=== PATIENT | female | born 1945 | race Asian ===

== ENCOUNTER 2018-03-20 18:01 | Emergency (ER) | payer OTHER, MEDICAID ==
[~2018-03-20] VITALS: Ht 157.5 cm; Wt 61.2 kg
[2018-03-20 18:06] VITALS: BP_SYST 119
[2018-03-20 19:20] LABS: BASOPHILS # (AUTO) 0.1 K/uL (0.0-0.2); BASOPHILS % (AUTO) 0.7 % (0.0-2.0); EOSINOPHILS # (AUTO) 0.1 K/uL (0.0-0.4); EOSINOPHILS % (AUTO) 0.7 % (0.0-4.0); HEMATOCRIT 41.9 % (36-48); HEMOGLOBIN 14.5 g/dL (12.0-16.0); LYMPHOCYTES # (AUTO) 1.6 K/uL (1.0-5.5); LYMPHOCYTES % (AUTO) 11.6 % (20.5-51.5); MEAN CORPUSCULAR HEMOGLOBIN 32 pg (27-31); MEAN CORPUSCULAR HGB CONC 35 % (32-36); MEAN CORPUSCULAR VOLUME 92 fL (79.0-98.0); MONOCYTES # (AUTO) 0.7 K/uL (0.0-1.0); MONOCYTES % (AUTO) 5.3 % (1.7-9.3); NEUTROPHILS # (AUTO) 11.3 K/uL (1.8-7.7); NEUTROPHILS % (AUTO) 81.7 % (40.0-70.0); PLATELET COUNT (AUTO) 266 K/uL (130-430); RED BLOOD CELL COUNT(AUTO) 4.57 MIL/uL (4.2-6.2); RED CELL DISTRIBUTION WIDTH 12.6 % (9.0-15.0); WHITE BLOOD COUNT (AUTO) 13.8 K/uL (4.8-10.8)
[2018-03-20 19:33] LABS: ANION GAP 7 (5-15); CALCIUM 9.5 mg/dL (8.4-11.0); CHLORIDE 100 mmol/L (98-107); CREATININE 0.96 mg/dL (0.55-1.30); GLUCOSE 155 mg/dL (70-99); SODIUM SERUM 134 mmol/L (136-145); UREA NITROGEN, BLOOD 27 mg/dL (8-21)
[2018-03-20 19:38] LABS: ALANINE AMINOTRANSFERASE 42 U/L (12-78); ALBUMIN 4.1 g/dL (3.4-4.8); ASPARTATE AMINOTRANSFERASE 28 U/L (10-37); TOTAL BILIRUBIN 0.4 mg/dL (0.0-1.0)
[2018-03-20 20:19] LABS: BILIRUBIN,URINE NEGATIVE (NEGATIVE); CLARITY/URINE CLEAR (CLEAR); COLOR,URINE YELLOW (YELLOW); GLUCOSE,URINE NEGATIVE (NEGATIVE); KETONES,URINE NEGATIVE (NEGATIVE); LEUKOCYTE ESTERASE ,URINE 1+ (NEGATIVE); NITRITE, URINE POSITIVE (NEGATIVE); PH,URINE 5.5 (5.0-8.0); PROTEIN URINE NEGATIVE (NEGATIVE)
[2018-03-20 20:24] LABS: BLOOD, URINE TRACE (NEGATIVE)
[2018-03-20 20:31] LABS: BACTERIA,URINE MANY /HPF (None Seen)
[2018-03-20] MEDS ORDERED: MECLIZINE HCL 25 MG TABLET (ANITVERT) PO ONE (21:15)
[2018-03-20] MEDS ORDERED: cefTRIAXone 1 GM IVPB PREMIX 50 ML IV ONE (21:15)
[2018-03-20] MEDS ORDERED: LORazepam 1 MG TABLET PO ONE (21:30)
[2018-03-20 22:09] VITALS: BP_SYST 120
== END 2018-03-20 22:09 | disposition home or self-care (01) ==
LOC: SED 18:01
DX: G89.29 Other chronic pain (principal); M25.561 Pain in right knee; N39.0 Urinary tract infection, site not specified; R42 Dizziness and giddiness; I10 Essential (primary) hypertension
CPT/HCPCS: 36415; 70450; 71045; 80053; 81000; 85025; 85730; 87086; 87186; 93005; 96365; 99285; J0696; J8597

== ENCOUNTER 2019-08-27 11:47 | Inpatient (IN) | payer OTHER, MEDICAID ==
[~2019-08-27] VITALS: Ht 157.5 cm; Wt 58.7 kg
[2019-08-27 11:55] VITALS: BP_SYST 153
--- NOTE | 2019-08-27 12:01 | NUR ---
Patient triaged and placed in waiting room. VSS and patient appears in no acute distress at this time. Accompanied by son, awaiting available bed, and MD notified of need for MSE.
--- NOTE | 2019-08-27 12:20 | NUR ---
Placed in room 03 . Placed on front desk monitor, blood pressure machine and pulse oximeter. To gown for exam. Side rails up.
--- NOTE | 2019-08-27 12:30 | NUR ---
PT CAME TO ER C/O OF PAIN IN R RIB RADIATING TO R LEG. PT IS RESTING COMFORTABLY, NO S/S OF DISTRESS
[2019-08-27] MEDS ORDERED: ONDANSETRON HCL 4 MG/2 ML VIAL IVP ONE (13:00)
[2019-08-27] MEDS ORDERED: NACL 0.9% 1,000 ML IV ONE (13:00)
--- NOTE | 2019-08-27 13:05 | NUR ---
medicated the pt w/ Zoan and NS per MD order.
--- NOTE | 2019-08-27 13:15 | NUR ---
ER at bedside examining patient.
[2019-08-27 13:25] LABS: BASOPHILS # (AUTO) 0.1 K/uL (0.0-0.2); BASOPHILS % (AUTO) 0.4 % (0.0-2.0); EOSINOPHILS # (AUTO) 0.1 K/uL (0.0-0.4); EOSINOPHILS % (AUTO) 0.8 % (0.0-4.0); HEMATOCRIT 35.5 % (36-48); HEMOGLOBIN 11.6 g/dL (12.0-16.0); LYMPHOCYTES # (AUTO) 0.8 K/uL (1.0-5.5); LYMPHOCYTES % (AUTO) 6.7 % (20.5-51.5); MEAN CORPUSCULAR HEMOGLOBIN 30 pg (27-31); MEAN CORPUSCULAR HGB CONC 33 % (32-36); MEAN CORPUSCULAR VOLUME 92 fL (79.0-98.0); MONOCYTES # (AUTO) 0.7 K/uL (0.0-1.0); MONOCYTES % (AUTO) 6.1 % (1.7-9.3); NEUTROPHILS # (AUTO) 10.6 K/uL (1.8-7.7); PLATELET COUNT (AUTO) 225 K/uL (130-430); RED BLOOD CELL COUNT(AUTO) 3.88 MIL/uL (4.2-6.2); WHITE BLOOD COUNT (AUTO) 12.3 K/uL (4.8-10.8)
--- NOTE | 2019-08-27 13:55 | NUR ---
report given and care endorsed to Darlene
[2019-08-27 14:07] LABS: ANION GAP 5 (5-15); CALCIUM 7.5 mg/dL (8.4-11.0); CHLORIDE 104 mmol/L (98-107); CREATININE 0.65 mg/dL (0.55-1.30); GLUCOSE 184 mg/dL (70-99); POTASSIUM 3.4 mmol/L (3.5-5.1); SODIUM SERUM 137 mmol/L (136-145); UREA NITROGEN, BLOOD 13 mg/dL (8-21)
[2019-08-27 14:15] LABS: ALANINE AMINOTRANSFERASE 22 U/L (12-78); ALBUMIN 2.8 g/dL (3.4-4.8); ASPARTATE AMINOTRANSFERASE 24 U/L (10-37); TOTAL BILIRUBIN 0.4 mg/dL (0.0-1.0)
[2019-08-27 14:16] LABS: LIPASE 1084 U/L (73-393)
--- NOTE | 2019-08-27 14:16 | NUR ---
URINE COLLECTED AND SENT TO LAB
[2019-08-27 14:22] LABS: BILIRUBIN,URINE NEGATIVE (NEGATIVE); BLOOD, URINE NEGATIVE (NEGATIVE); CLARITY/URINE CLEAR (CLEAR); COLOR,URINE YELLOW (YELLOW); GLUCOSE,URINE NEGATIVE (NEGATIVE); KETONES,URINE NEGATIVE (NEGATIVE); LEUKOCYTE ESTERASE ,URINE 1+ (NEGATIVE); NITRITE, URINE POSITIVE (NEGATIVE); PH,URINE 6.5 (5.0-8.0); PROTEIN URINE NEGATIVE (NEGATIVE)
[2019-08-27 14:26] LABS: BACTERIA,URINE MANY /HPF (None Seen); RBC,URINE 0-3 /HPF (0-3)
[2019-08-27] MEDS ORDERED: cefTRIAXone 1 GM in D5W 50 ML IV ONE (15:00)
[2019-08-27] MEDS ORDERED: cefTRIAXone 1 GM VIAL ONE (15:10)
[2019-08-27] MEDS ORDERED: IBAN150T8 PO (15:17)
[2019-08-27] MEDS ORDERED: NOR10 PO (15:17)
[2019-08-27] MEDS ORDERED: POTA8TAB4 PO (15:17)
[2019-08-27] MEDS ORDERED: HYDR25TA4 PO (15:17)
[2019-08-27] MEDS ORDERED: ASPI-859 PO (15:17)
[2019-08-27] MEDS ORDERED: PARO-41 PO (15:17)
[2019-08-27] MEDS ORDERED: GABA300S PO (15:17)
[2019-08-27] MEDS ORDERED: OXYB5TAB11 PO (15:17)
[2019-08-27] MEDS ORDERED: SIMV40TA2 PO (15:17)
[2019-08-27] MEDS ORDERED: OMEP-268 PO (15:17)
[2019-08-27] MEDS ORDERED: FURO-149 PO (15:17)
[2019-08-27] MEDS ORDERED: LISI-600 PO (15:17)
[2019-08-27] MEDS ORDERED: ATEN50TA PO (15:17)
[2019-08-27] MEDS ORDERED: NAPR-1069 PO (15:17)
--- NOTE | 2019-08-27 15:58 | NUR ---
Ultrasound at bedside
--- NOTE | 2019-08-27 16:00 | NUR ---
Dr. Moran speaking with Dr. Cage regarding admission.
--- NOTE | 2019-08-27 16:05 | NUR ---
Dr. Moran at bedside updating pt on change of status
--- NOTE | 2019-08-27 16:08 | NUR ---
MST to call back with bed number
--- NOTE | 2019-08-27 16:29 | NUR ---
BP 202/105. Dr. Moran notified. Labetolol 10mg IVP to be ordered.
[2019-08-27] MEDS ORDERED: LABETALOL 100 MG/ 20ML VIAL IVP ONE (16:30)
--- NOTE | 2019-08-27 16:36 | NUR ---
BP 123/71. Dr. Moran notified. Labetolol canceled per .
--- NOTE | 2019-08-27 16:36 | NUR ---
Patient will be admitted to care of Dr. Cage. Admitted to Telemetry unit. Will go to room 111B. Belongings list completed. Complete and up to date summary report printed. SBAR report to be given at bedside with opportunity for questions.
--- NOTE | 2019-08-27 16:39 | NUR ---
Patient will be admitted to [facility]. Admitted to Telemetry unit. Will go to room 111B. Complete and up to date summary report printed. SBAR report to be given at bedside with opportunity for questions.
--- NOTE | 2019-08-27 16:47 | NUR ---
ADMISSION NOTE: Received patient from ER via gurney. Patient admitted with diagnosis of right sided chest pain and acute pancreatitis. Patient is awake, alert, oriented X 2. Patient oriented to hospital room, call light, toileting, pain management and safety-teach back done. Patient informed that their room number is 104A. Personal belongings checked and Belongings List documented. Call light within reach.
[2019-08-27 17:21] VITALS: BP_SYST 171
[2019-08-27 17:32] VITALS: BP_SYST 171
--- NOTE | 2019-08-27 19:35 | NUR ---
ROUNDS PATIENT RESTING COMFORTABLY IN BED, NOT IN DISTRESS, KYRGYZ SPEAKING, FAMILY AT THE BEDSIDE. DENIES ANY PAIN AND DISCOMFORT AT THIS TIME. ASSESSMENT DONE AND DOCUMENTED. SEE FLOWSHEET. NEEDS ATTENDED TO. SAFETY AND FALL MEASURES IN PLACED. BED IN LOW AND LOCKED POSITION. BED ALARM ON. CALL LIGHT PLACED WITHIN REACH.
[2019-08-27 20:00] VITALS: BP_SYST 197
[2019-08-27] MEDS ORDERED: ATENOLOL 50 MG TABLET (TENORMIN) PO ONE (20:00)
[2019-08-27] MEDS ORDERED: cloNIDine HCL 0.2 MG TABLET PO ONE (20:00)
[2019-08-27] MEDS ORDERED: cloNIDine HCL 0.1 MG TABLET PO PRN (20:00)
[2019-08-27] MEDS ORDERED: POTASSIUM CHLORIDE 20 MEQ TAB.PRT.SR PO ONE (20:00)
[2019-08-27] MEDS ORDERED: OXYBUTYNIN CHLORIDE 5 MG TABLET PO ONE (20:00)
[2019-08-27] MEDS ORDERED: LISINOPRIL 20 MG TABLET PO ONE (20:00)
[2019-08-27] MEDS ORDERED: ACETAMINOPHEN 325 MG TABLET PO PRN (20:15)
[2019-08-27] MEDS ORDERED: MORPHINE 2 MG/ML INJ. SYRINGE IVP PRN ×2 (20:15)
[2019-08-27] MEDS ORDERED: CIPROFLOXACIN HCL 500 MG TABLET PO ONE (20:15)
[2019-08-27] MEDS ORDERED: ONDANSETRON HCL 4 MG/2 ML VIAL IVP PRN (20:15)
--- NOTE | 2019-08-27 20:30 | NUR ---
DR. RYAN DAVIS HERE AND SAW PATIENT WITH NEW ORDERS. WILL CONTINUE TO MONITOR.
--- NOTE | 2019-08-27 20:56 | NUR ---
CONSULTATION PAGED/CALLED Reason for Consultation: PANCREATITIS Person Who was Notified: SELINA Consulting Physician: Traffic And Transport Planner Specialty: GI Ordering Physician:
--- NOTE | 2019-08-27 20:57 | NUR ---
CONSULTATION PAGED/CALLED Reason for Consultation: CP Person Who was Notified: SELINA Consulting Physician: Heel Buffer Specialty: CARDIO Ordering Physician:
--- NOTE | 2019-08-27 20:58 | NUR ---
CONSULTATION PAGED/CALLED Reason for Consultation: CP Person Who was Notified: SELINA Consulting Physician: DR.KALKAT LEYVA Insurance Instructor Specialty: PULMO Ordering Physician:
[2019-08-27] MEDS: LACTOBACILLUS RHAMNOSUS GG 1 CAP CAPSULE PO SCH (21:00)
[2019-08-27] MEDS: POTASSIUM CHLORIDE 20 MEQ TAB.PRT.SR PO SCH (21:00)
[2019-08-27] MEDS: FAMOTIDINE PF 20 MG/2 ML VIAL IVP SCH (21:02)
[2019-08-27] MEDS: GABAPENTIN 300 MG CAPSULE PO SCH (21:02)
[2019-08-27] MEDS: ENOXAPARIN SODIUM 40 MG/0.4 ML SYRINGE SUBCUT SCH (21:03)
--- NOTE | 2019-08-27 21:13 | NUR ---
MEDICATION DUE MEDICATIONS GIVEN SCHEDULED, TOLERATED WELL. WILL CONTINUE TO MONITOR.
[2019-08-28] VITALS: BP_SYST 115
--- NOTE | 2019-08-28 00:15 | NUR ---
NOTES PATIENT AWAKE, VITALS STABLE, DENIES ANY PAIN AT THIS TIME. PATIENT DOES NOT WANT TO STAY IN BED AND WANTS TO SIT OUTSIDE HER ROOM. WILL CONTINUE TO MONITOR.
--- NOTE | 2019-08-28 02:15 | NUR ---
PATIENT RESTING: Patient resting quietly. No acute distress noted. Vital signs within normal range.
--- NOTE | 2019-08-28 04:21 | NUR ---
NOTES PATIENT ASLEEP, RESPIRATIONS EVEN AND UNLABORED, WILL CONTINUE TO MONITOR.
--- NOTE | 2019-08-28 06:44 | NUR ---
CLOSING NOTES PATIENT AWAKE, VITALS STABLE, NO PAIN AND DISCOMFORT NOTED AT THIS TIME. ALL NEEDS ATTENDED TO. SAFETY AND FALL MEASURES MAINTAINED. CALL LIGHT PLACED WITHIN REACH.
[2019-08-28 07:30] LABS: BASOPHILS # (AUTO) 0.1 K/uL (0.0-0.2); BASOPHILS % (AUTO) 0.8 % (0.0-2.0); EOSINOPHILS # (AUTO) 0.1 K/uL (0.0-0.4); EOSINOPHILS % (AUTO) 1.4 % (0.0-4.0); HEMATOCRIT 39.4 % (36-48); HEMOGLOBIN 12.9 g/dL (12.0-16.0); LYMPHOCYTES # (AUTO) 0.9 K/uL (1.0-5.5); LYMPHOCYTES % (AUTO) 9.1 % (20.5-51.5); MEAN CORPUSCULAR HEMOGLOBIN 30 pg (27-31); MEAN CORPUSCULAR HGB CONC 33 % (32-36); MEAN CORPUSCULAR VOLUME 92 fL (79.0-98.0); MONOCYTES # (AUTO) 0.6 K/uL (0.0-1.0); MONOCYTES % (AUTO) 5.9 % (1.7-9.3); NEUTROPHILS # (AUTO) 8.5 K/uL (1.8-7.7); NEUTROPHILS % (AUTO) 82.8 % (40.0-70.0); PLATELET COUNT (AUTO) 248 K/uL (130-430); RED CELL DISTRIBUTION WIDTH 14.3 % (9.0-15.0); WHITE BLOOD COUNT (AUTO) 10.2 K/uL (4.8-10.8)
--- NOTE | 2019-08-28 08:00 | NUR ---
RN INITIAL NOTES RECEIVED PATIENT IN BED ALERT [place] SPEAKING SON AT BEDSIDE AND INTERPRETED PATIENT WAS REPORTED CONFUSED AND RESTLESS LAST NIGHT , PER SON SHOLA PATIENT WAS RESTLESS AND CONFUSED LAST NIGHT BEC SHE WANTS TO GO HOME BEC SHE WANTS TO PREPARE FOR THE NEW YEAR AND CELEBRATE THE USUAL ROUTINE CELEBRATION LIKE GIVEING MONEY AWAY TO THE FAMILY AND TO PREPARE FOOD, NO DISTRESS, RESP EVEN AND UNLABORED, PATIENT IV HL TO RT WRIST INTACT , AWAITING FOR THE GI AND CARDIOLOGY TO COME SEE PATIENT , SAFETY ENSURED AND PATIENT SON EXPLAINED FULLY TO THE PATIENT WHICH SHE FULLY UNDERSTOOD.
[2019-08-28 08:27] LABS: ALANINE AMINOTRANSFERASE 22 U/L (12-78); ALBUMIN 3.1 g/dL (3.4-4.8); AMYLASE 50 U/L (0-100); ANION GAP 9 (5-15); ASPARTATE AMINOTRANSFERASE 30 U/L (10-37); CALCIUM 7.7 mg/dL (8.4-11.0); CHLORIDE 105 mmol/L (98-107); CREATININE 0.61 mg/dL (0.55-1.30); FREE T4 (FREE THYROXINE) 1.3 ng/dl (0.8-1.5); GLUCOSE 116 mg/dL (70-99); LIPASE 300 U/L (73-393); PHOSPHORUS 2.5 mg/dL (2.7-4.5); SODIUM SERUM 139 mmol/L (136-145); THYROID STIMULATING HORMONE 4.88 uIu/mL (0.36-3.74); TOTAL BILIRUBIN 0.4 mg/dL (0.0-1.0); UREA NITROGEN, BLOOD 13 mg/dL (8-21)
[2019-08-28] MEDS: LACTOBACILLUS RHAMNOSUS GG 1 CAP CAPSULE PO SCH ×2 (08:55→20:51)
[2019-08-28] MEDS: POTASSIUM CHLORIDE 20 MEQ TAB.PRT.SR PO SCH ×2 (08:55→20:51)
[2019-08-28] MEDS: GABAPENTIN 300 MG CAPSULE PO SCH ×3 (08:56→20:51)
[2019-08-28] MEDS: CIPROFLOXACIN HCL 500 MG TABLET PO SCH ×2 (08:57→21:03)
[2019-08-28] MEDS: FAMOTIDINE PF 20 MG/2 ML VIAL IVP SCH ×2 (08:59→20:51)
[2019-08-28] MEDS ORDERED: NON-FORMULARY MEDICATION (Omeprazole 1 CAP) PO SCH (09:00)
[2019-08-28] MEDS ORDERED: PARoxetine HCL 20 MG TABLET PO SCH (09:00)
[2019-08-28] MEDS ORDERED: amLODIPine BESYLATE 10 MG TABLET PO SCH (09:00)
[2019-08-28] MEDS ORDERED: ATENOLOL 50 MG TABLET (TENORMIN) PO SCH (09:00)
[2019-08-28] MEDS ORDERED: PANTOPRAZOLE SODIUM 40 MG TAB PO SCH (09:00)
[2019-08-28] MEDS ORDERED: LISINOPRIL 20 MG TABLET PO SCH (09:00)
[2019-08-28] MEDS ORDERED: ASPIRIN 81 MG TABLET(ECOTRIN) PO SCH (09:00)
[2019-08-28] MEDS ORDERED: SIMVASTATIN 40 MG TABLET PO SCH (09:00)
[2019-08-28] MEDS ORDERED: OXYBUTYNIN CHLORIDE 5 MG TABLET PO SCH (09:00)
[2019-08-28] MEDS ORDERED: FUROSEMIDE 40 MG TABLET PO SCH (09:00)
[2019-08-28 09:04] LABS: CHOLESTEROL 129 mg/dL (<200); HDL CHOLESTEROL 44 mg/dL (>55); LDL CHOLESTEROL 67 mg/dL (<100); TRIGLYCERIDES 84 mg/dL (30-150)
--- NOTE | 2019-08-28 10:00 | NUR ---
GI /CARDIOLOGY CONSULT /VISIT PATIENT SEEN BY DR SNELL AND INTERPRETED BY SON PLAN OF CARE , AND UNDERSTOOD 2 D ECHO DONE AND SON AT BEDSIDE , DR OVERTON SPOKE WITH THE PATIENT AND SON ORDERED FOR EGD , WILL OBTAIN CONSENT
[2019-08-28] MEDS: cefTRIAXone 1 GM in D5W 50 ML IV SCH (10:20)
[2019-08-28 10:27] VITALS: BP_SYST 127
--- NOTE | 2019-08-28 10:57 | NUR ---
FALL INCIDENT HEARD BED ALARM ,AND SAW PATIENT STANDING AND SLOWLY SLIDING TO THE FLOOR BEFORE STAFF GOT TO HER , STAFF RUN AND ASSISTED PATIENT BACK TO THE BED,ABLE TO TAKE A FEW STEPS , NO SIGN OF INJURY, BED ALARM REACTIVATED AGAIN,PATIENT IS ALERT AWAKE AND NO SIGN OF DISTRESS, PATIENT IS A AZERI SPEAKING DENIES PAIN PER SUPERCHARGER REPAIR SUPERVISOR AND SHE STATED PER SUPERCHARGER REPAIR SUPERVISOR THAT SHE STOOD UP BECAUSE SHE WANTS TO GO HOME VITALS SIGNS TAKEN AND ADVISED PATIENT TO REFRAIN FROM GETTING UP UNATTENDED , WILL INFORM MD AND SON MADE AWARE, SON IS TALKING TO THE PATIENT RIGHT NOW, WILL CONT TO MONITOR PATIENT CLOSELY
--- NOTE | 2019-08-28 11:30 | NUR ---
DR RYAN PINZON CAME MADE AWARE OT THE PATIENT CONDITION ,
[2019-08-28] MEDS ORDERED: HALOPERIDOL LACTATE 5 MG/ML VIAL ONE (11:48)
--- NOTE | 2019-08-28 11:55 | NUR ---
HALDOL HALDOL WAS GIVEN BY BRAULIO RUDD , D/T PATIENT BECOMES VERY RESTLESS AND WANTS TO GO HOME , FEW STAFF CAME AND HELP PATIENT FOR HALDOL INJECTION
[2019-08-28 12:30] VITALS: BP_SYST 137
[2019-08-28] MEDS ORDERED: HALOPERIDOL LACTATE 5 MG/ML VIAL IM ONE (12:30)
--- NOTE | 2019-08-28 12:56 | NUR ---
REFUSAL TO GO TO OTHER ROOM WITH SITTER DISCUSSED WITH CHACORTA JOLLEY INFORMED PATIENT RISK OF ANOTHER FALL INCIDENT , CHACORTA JOLLEY STATED NO NEED TO TRANSFER MY MOM TO A ROOM WITH A SITTER , PER SON HE EXPLAINED TO THE PATIENT ABOUT RISK OF FALL AND ADVISED TO STAY IN BED TILL HE COMES BACK AFTER PICKING UP HIS KIDS FROM SCHOOL, PATIENT PLACED IN THE MIDDLE OF THE BED AND ADVISED TO STAY IN BED , PATIENT AGREED FOR THE IV REINSERTION TO RT. WRIST , PATIENT AT THIS TIME CALMED DOWN BUT STILL VERBALIZING WANTING TO GO HOME, CHACORTA JOLLEY CONSENTED WITH THE EGD
[2019-08-28] MEDS ORDERED: HALOPERIDOL LACTATE 5 MG/ML VIAL IM PRN (13:15)
--- NOTE | 2019-08-28 15:00 | NUR ---
RESTLESS PATIENT BECOMES RESTLESS AGAIN AND SON WAS CALLED AND SON CAME KEEP PATIENT IN THE ROOM AND SAFETY ENSURED PATIENT ASSISTED TO THE BR
--- NOTE | 2019-08-28 15:18 | NUR ---
DCPA and Social Service contact COMPONENT INSPECTOR met with patient at bedside to conduct a DCPA. Pt. was alert and calm, she was admitted to the floor for acute pancreatitis and right side chest pain. Son Yang Magaña was present and provided info for assessment, Pt is Icelandic speaking only. Pt. lives at home with and son is her [facility] medical care evaluation specialist. Pt. has the following insurance [employer], [employer] [place] [employer]. Her PCP is Dr. Jareth Mccain in [place] . Prior to being admitted Pt. was minimal assist with her activities of daily living, utilizes a walker for mobility, able to ambulate and lives in the first floor. Pt. has no Hx of HH, SNF and have no preference as if it were to be recommended. Pt. and Pts family want her to return home to previous care arrangements , son is available to continue to provide care for her at home. No Social Service concern or inquiry at this time. DCP/ CM and SS to remain available as needed.
[2019-08-28 16:29] VITALS: BP_SYST 138
[2019-08-28] MEDS: HALOPERIDOL 1 MG TABLET (HALDOL) PO SCH ×2 (18:43→20:51)
--- NOTE | 2019-08-28 18:55 | NUR ---
ENDORSEMENT WILL ENDORSE TO NEXT SHIFT CONT CARE , PATIENT IS FOE EGD IN AM , WITH CONSENT OBTAINED FROM SON PATIENT STILL WITH EPISODES OF ON AND OFF RESTLESSNESS PT TRANSFERRED TO ROOM 121 FOR SITTER AND SAFETY D/T EPISODES OF GETTING UP PATIENT WILL BE NPO PMN EGD WILL BE @ 8AM HALDOL GIVEN AND SHE TOOK IT
--- NOTE | 2019-08-28 19:30 | NUR ---
CHANGE OF SHIFT; pt. awake, alert, pt. speaks Setswana, pretty calm at this time. able to do some sign language , on direct observation due to restlessness and fell today. SHON Manzanares at bedside.
[2019-08-28] MEDS: ENOXAPARIN SODIUM 40 MG/0.4 ML SYRINGE SUBCUT SCH (20:55)
[2019-08-28 21:00] VITALS: BP_SYST 154
--- NOTE | 2019-08-28 21:00 | NUR ---
NOTES: pt. been sleeping, VS checked,been refusing to take medications. called her son and spoke to her on the phone and agreed to take it. made aware also that she will be NPO after midnight fro schedule EGD and son informed pt. pt. needs attended. remain on direct observation. on fall risk precautions.
--- NOTE | 2019-08-28 22:25 | NUR ---
NOTES: pt. checked and sleeping, no distress noted nor discomfort. continue direct observation.
--- NOTE | 2019-08-28 22:40 | NUR ---
NOTES: Troponin level ordered by Dr. Edna robles, pt. refused blood draw. called exchange, laron PINZON, Dr. Dominguez 1st pressman on web press, waiting to call back.
--- NOTE | 2019-08-28 23:00 | NUR ---
NOTES: pt. got ouf bed and went to the restroom and after she came out of the room, thinking her son is here, try to reorient. called the son again on the phone and let him talk to her to go back to bed, pt. did but only for few minutes and out of bed again/ security tech here, stand by. called criminal records technician to interpret she speaks the same dialect. Dr. Dominguez returned the call and made him aware of pt. refusal of blood draw. 3 series of Troponiin already done and all with normal results.
--- NOTE | 2019-08-28 23:15 | NUR ---
NOTES: pt. remain outside her room , sitting up in chair, emerging technologies director here talking to her in her dialect. pt. disoriented and still saying her son is here. Haldol im given as ordered, closely observed. pt. calm.
--- NOTE | 2019-08-28 23:46 | NUR ---
NOTES: pt. went back to her bed. bed alarm on. on direct observation.
--- NOTE | 2019-08-28 23:49 | NUR ---
NOTES: pt. up again, remain confused. let her sit outside her room in a chair.
[2019-08-29 00:15] VITALS: BP_SYST 139
--- NOTE | 2019-08-29 01:52 | NUR ---
NOTES: pt. checked and sleeping. on continuous direct observation. SHON Batista watching over.the pt. ed alarm turned on.
--- NOTE | 2019-08-29 04:00 | NUR ---
NOTES: pt. remain sleeping. no complaints manifested. dozing at long intervals. kept NPO.on direct observation.
--- NOTE | 2019-08-29 05:26 | NUR ---
NOTES: remain sleeping, no distress. on direct observation. IV lock intact.
--- NOTE | 2019-08-29 05:46 | NUR ---
NOTES: pt. awakened, got out of bed and use the restroom and voided.pt. does not want to go back to bed. ambulated outside and sitting in a chair. pt. calm. closely watch.
--- NOTE | 2019-08-29 06:40 | NUR ---
CLOSING NOTES; pt. remains awake. sitting up in chair with ROPE MAKER watching. no complaints noted. IV lock patent and secured with kerlix gauze dressing. kept NPO for schedule EGD this am, consent signed by son. GI nurse here and updated on pt. status. for further care and assistance and observation. will endorse to day shift.
[2019-08-29] MEDS ORDERED: MIDAZOLAM HCL 5 MG/5 ML VIAL ONE (07:16)
[2019-08-29] MEDS ORDERED: MEPERIDINE HCL/PF 25 MG/ML DISP.SYRIN ONE ×3 (07:16→07:17)
[2019-08-29 07:43] VITALS: BP_SYST 149
--- NOTE | 2019-08-29 08:00 | NUR ---
initial notes pt rec sitting in a chair on the hallway accompanied by her son. resp easy and unlabored. no osb noted. pt is npo will have egd today. will continue to monitor patient.
--- NOTE | 2019-08-29 09:00 | NUR ---
rounds was picked by wheelchair for egd accompanied by son and kena lab nurse.
[2019-08-29] MEDS ORDERED: SIMETHICONE 40 MG/0.6 ML ML ONE (09:36)
[2019-08-29] MEDS ORDERED: MEPERIDINE HCL/PF 25 MG/ML DISP.SYRIN IVP ONE (10:15)
[2019-08-29] MEDS ORDERED: SIMETHICONE 80 MG TAB.CHEW PO ONE (10:30)
[2019-08-29] MEDS ORDERED: MIDAZOLAM HCL/PF 2 MG/2 ML SYRINGE IVP ONE (10:30)
--- NOTE | 2019-08-29 10:30 | NUR ---
rounds pt was back from gi lab. pt is stable but drowsy. arousable to stimuli.
[2019-08-29] MEDS ORDERED: PANTOPRAZOLE SODIUM 40 MG TAB PO ONE (10:45)
[2019-08-29] MEDS: cefTRIAXone 1 GM in D5W 50 ML IV SCH (11:34)
[2019-08-29 12:13] VITALS: BP_SYST 154
[2019-08-29] MEDS ORDERED: CIPR-211 PO (13:59)
[2019-08-29] MEDS ORDERED: LACT1CAP57 PO (13:59)
--- NOTE | 2019-08-29 14:00 | NUR ---
rounds seen by dr marroquin and [facility] dougherty. will mank an appt to see dr marroquin
[2019-08-29] MEDS ORDERED: OMEP20CA11 PO (14:05)
[2019-08-29 14:43] VITALS: BP_SYST 154
--- NOTE | 2019-08-29 15:10 | NUR ---
D/C Patient Patient given medication reconciliation form and D/C instructions. Exit Care provided. Patient verbalized understanding. MD discussed with patient the results and treatment provided. Ambulatory with steady gait for discharge to home. Patient in stable condition, ID band removed. IV catheter removed, intact and dressing applied, no active bleeding. given prescription for out patient CT SCAN of the abdomen , Patient educated on pain management, diet, antibiotic, specify NO NSAIDS, NAPROXEN, IBUPROFEN. All belongings sent with patient.
[2019-08-30] MEDS ORDERED: PANTOPRAZOLE SODIUM 40 MG TAB PO SCH (09:00)
--- NOTE | 2019-09-02 16:35 | NUR ---
Discharge Follow Up Phone Call Phoned patient, , and spoke with patient's son and caregiver, Yang. He stated that patient is doing much better. They have made a follow up appointment with patient's PCP and filled the prescription. Patient is taking her medications as directed. Yang stated they have no questions or concerns and were very happy with patient's care at [facility].
== END 2019-08-29 15:15 | disposition home or self-care (01) | DRG 391 ==
LOC: SED 11:47 → STU 16:10 → SMU 08-28 17:27
PROVIDERS: ADMIT Internal Medicine; ATTEND Internal Medicine
PROC: 0DB68ZX Excision of Stomach, Via Natural or Artificial Opening Endoscopic, Diagnostic (ICD-10-PCS; principal; 2019-08-29 09:00)
DX: K29.00 Acute gastritis without bleeding (principal); K85.90 Acute pancreatitis without necrosis or infection, unspecified; N39.0 Urinary tract infection, site not specified; R65.10 Systemic inflammatory response syndrome (SIRS) of non-infectious origin without acute organ dysfunction; K27.9 Peptic ulcer, site unspecified, unspecified as acute or chronic, without hemorrhage or perforation; K76.9 Liver disease, unspecified; I10 Essential (primary) hypertension; E78.5 Hyperlipidemia, unspecified; N23 Unspecified renal colic; B96.89 Other specified bacterial agents as the cause of diseases classified elsewhere; Z79.899 Other long term (current) drug therapy
CPT/HCPCS: 36415; 43239; 71045; 76700-TC; 80053; 80061; 81000-TC; 82150-TC; 83605; 83690-TC; 83735-TC; 83880; 84100-TC; 84439; 84443-TC; 84484; 85025; 85379; 87040-TC; 87081; 87086; 87186-TC; 88305; 88312; 88313; 93005; 93306; 93970; 96361; 96365; 96375; 99285; G0378; J0696; J1630; J1650; J2175; J2250; J2405; J3465; J3490; J7030; J7040; J7060